=== PATIENT | female | born 1940 | race Caucasian/White ===

== ENCOUNTER 2018-07-14 06:41 | Inpatient (IN) | payer OTHER ==
[2018-07-14] VITALS (10 sets, daily range): BP systolic 103–133; BP diastolic 54–76
[~2018-07-14] VITALS: Ht 139.7 cm; Wt 53.5 kg
[2018-07-14] MEDS ORDERED: TRANEXAMIC ACID 3,000 MG in SODIUM CHLORIDE IRRIG SOLUTION 70 ML IR ONE (07:00)
--- NOTE | 2018-07-14 07:10 | NUR ---
NEW ADMISSION NOTES RECEIVED PATIENT DAY SURGERY TO ROOM 119-1, ACCOMPANIED BY STAFF & SON. A & O X 3, HEBREW SPEAKING. V/S 171/75, 65, 18, 97.5, 99% AT RA. NPO SINCE MIDNIGHT. ADMITTED FOR RIGHT KNEE SURGERY. IV INSERTED TO BENNY, G # 20 WITH GOOD BLOOD RETURN, PROCEDURE TOLERATED WELL BY THE PATIENT. USES WHEELCHAIR AT HOME. CONTINENT OF B & BM. SAFETY MEASURES IN PLACE. BED IN LOW LOCKED POSITION. CALL LIGHT WITHIN REACH. SON AT BED SIDE. ENDORSED TO AM RN TO CONTINUE PLAN OF CARE.
[2018-07-14] MEDS ORDERED: CLONIDINE HCL 0.1 MG TABLET PO PRN (08:00)
[2018-07-14] MEDS ORDERED: HYDROCODONE/APAP 5/325MG 1 EACH TABLET PO PRN (08:00)
[2018-07-14] MEDS ORDERED: HYDROCODONE/APAP 10/325MG 1 EA TABLET PO PRN (08:00)
[2018-07-14] MEDS ORDERED: MAG HYDROX/AL HYDROX/SIMETH 30 ML UDC PO PRN (08:00)
[2018-07-14] MEDS ORDERED: diphenhydrAMINE HCL 25 MG CAPSULE PO PRN (08:00)
[2018-07-14] MEDS ORDERED: LORAZEPAM 1 MG TABLET PO PRN (08:00)
[2018-07-14] MEDS ORDERED: UBID100C13 PO (08:28)
[2018-07-14] MEDS ORDERED: ASCO500T9 PO (08:28)
[2018-07-14] MEDS ORDERED: LOSA100T15 PO (08:28)
[2018-07-14] MEDS ORDERED: OMEG1CAP PO (08:28)
[2018-07-14] MEDS ORDERED: CITA20TA16 PO (08:28)
[2018-07-14] MEDS ORDERED: AMLO10TA6 PO (08:28)
[2018-07-14] MEDS ORDERED: OMEP20CA10 PO (08:28)
[2018-07-14] MEDS ORDERED: MULT-24 PO (08:28)
[2018-07-14] MEDS ORDERED: LEVO50TA8 PO (08:28)
[2018-07-14] MEDS ORDERED: ALEN70TA45 PO (08:28)
[2018-07-14] MEDS: HYDROMORPHONE 1 MG/1 ML DISP.SYRIN IM PRN (08:45)
[2018-07-14] MEDS: CITALOPRAM HYDROBROMIDE 20 MG TABLET PO SCH (09:00)
[2018-07-14] MEDS: DOCUSATE SODIUM 100 MG CAPSULE PO SCH ×2 (09:00→16:37)
--- NOTE | 2018-07-14 09:30 | NUR ---
MS RN NOTES PATIENT TRANSFERRED TO OR FOR SCHEDULED RIGHT TOTAL KNEE ARTHROPLASTY IN STABLE CONDITION.
[2018-07-14] MEDS ORDERED: BUPIVACAINE 0.75% DEXT-PF 2 ML AMPUL ONE (10:48)
[2018-07-14] MEDS ORDERED: FENTANYL PF 100MCG/2ML AMPUL ONE (10:48)
[2018-07-14] MEDS ORDERED: MORPHINE SULFATE/PF 10 MG/10ML (1MG/ML) AMPUL ONE (10:50)
[2018-07-14] MEDS ORDERED: BACITRACIN 50000 UNITS/VIAL ONE (11:00)
[2018-07-14] MEDS ORDERED: EPHEDRINE SULFATE IV 50MG VIAL ONE (12:22)
[2018-07-14] MEDS ORDERED: BISACODYL SUPP (10 MG) 10 MG/SUPP.RECT SUPP.RECT RC PRN (13:00)
[2018-07-14] MEDS ORDERED: ZOLPIDEM TARTRATE 5 MG TABLET PO PRN (13:00)
[2018-07-14] MEDS ORDERED: SENNOSIDES 8.6 MG TABLET PO PRN (13:00)
[2018-07-14] MEDS ORDERED: DOCUSATE SODIUM 250 MG CAPSULE PO PRN (13:00)
[2018-07-14] MEDS ORDERED: IV LR 1000 ML 1,000 ML IV PRN (13:00)
[2018-07-14] MEDS: ONDANSETRON HCL/PF 4 MG/2 ML VIAL IV PRN ×2 (14:51→22:47)
--- NOTE | 2018-07-14 18:14 | NUR ---
RN NOTES PATIENT IN BED RESTING NO SOB OR ACUTE DISTRESS NOTED. PATIENT KEPT COMFORTABLE. S/P RIGHT TOTAL KNEE REPLACEMENT. ALL DUE MEDICATIONS ADMINISTERED. ALL NEEDS MET. WILL ENDORSE TP PM SHIFT BETY.
--- NOTE | 2018-07-14 18:30 | NUR ---
Met with son Brad, patient speaks Croatian only. She lives with her son Brad at [address] [place] [address]. Prior to admission, she was ambulating with a wheelchair and requires min assist with adl's.She owns a walker,wheelchair and shower chair.Family is requesting SNF placement short term on discharge due to limited assistance at home. Will contact [facility] health plan for SNF approval. Addendum: 07/14/18 at 1830 by CIERRA BURNS RN Amended: Links added.
--- NOTE | 2018-07-14 19:35 | NUR ---
ANN RN NOTES RECEIVED PATIENT'S BEDSIDE REPORT FROM AM NURSE. PATIENT IS A/OX3 SONS AT THE BEDSIDE. PATIENT IS CZECH SPEAKING.PATIENT IS ON CLEAT BLANKER SR WITH HR OF 75, SPO2 IS 97% AT RA, NO NEUROLOGIC DEFICIT NOTED AT THIS TIME, NO SOB, NO COMPLAINT OF PAIN AT THIS TIME. LEFT AC IVG20 IS INTACT, PATIENT WITH LR A275ML/HR, SOUTH CATH. IN PLACE DRAINING YELLOW URINE ON GRAVITY.CONTINENT OF B & BM. SAFETY MEASURES IN PLACE. BED IN LOW LOCKED POSITION. CALL LIGHT WITHIN REACH. WILL CONT. TO MONITOR CLOSELY.
[2018-07-14] MEDS: ANCEF 1 GM/50 ML D5W IV SCH ×2 (19:44)
[2018-07-14] MEDS: ACETAMINOPHEN 325 MG TABLET PO PRN (22:47)
[2018-07-14] MEDS: PANTOPRAZOLE 40 MG TABLET.DR PO SCH (22:47)
[2018-07-15] VITALS: BP 116/60
[2018-07-15 04:00] VITALS: BP 130/46
[2018-07-15] MEDS: ANCEF 1 GM/50 ML D5W IV SCH ×2 (04:28)
[2018-07-15] MEDS: ACETAMINOPHEN 325 MG TABLET PO PRN ×2 (04:49→21:00)
--- NOTE | 2018-07-15 06:45 | NUR ---
ANN RN CLOSING NOTES PATIENT IS STABLE, A/OX3 ,SON AT THE BEDSIDE. PATIENT IS MOLDOVAN SPEAKING.PATIENT IS ON SERVICENOW ADMINISTRATOR DEVELOPER WITH SR, SPO2 IS > 95% AT RA, NO NEUROLOGIC DEFICIT NOTED DURING MY SHIFT, NO SOB, NO COMPLAINT OF PAIN AT THIS TIME. RIGHT WRIST IV G22 IS INTACT, PATIENT WITH LR 75ML/HR, SOUTH CATH. IN PLACE DRAINING YELLOW URINE ON GRAVITY. SAFETY MEASURES IN PLACE ALL THE TIME. BED IN LOW LOCKED POSITION. CALL LIGHT WITHIN REACH. WILL GIVE PATIENT'S CARE REPORT TO AM NURSE FOR DIRECTOR OF MANUFACTURING OPERATIONS.
[2018-07-15 07:09] LABS: BASOPHILS % (AUTO) 0.2 % (0.0-2.0); HEMATOCRIT 33 % (33-45); HEMOGLOBIN 10.9 g/dL (11.5-14.8); LYMPHOCYTES # (AUTO) 0.9 /CMM (0.8-4.8); LYMPHOCYTES % (AUTO) 9.6 % (20.0-44.0); MEAN CORPUSCULAR HGB CONC 33 g/dl (31.0-36.0); MEAN CORPUSCULAR VOLUME 93 fL (82-100); MONOCYTES # (AUTO) 0.6 /CMM (0.1-1.30); MONOCYTES % (AUTO) 6.8 % (2.0-12.0); NEUTROPHILS # (AUTO) 7.7 /CMM (1.8-8.9); NEUTROPHILS % (AUTO) 83.4 % (43.0-81.0); PLATELET COUNT (AUTO) 263 /CMM (150-450); RED BLOOD CELL COUNT(AUTO) 3.52 MIL/uL (4.0-5.2); WHITE BLOOD COUNT (AUTO) 9.3 K/uL (4.3-11.0)
--- NOTE | 2018-07-15 07:16 | NUR ---
MS/RN Patient received Patient received from carpet layer helper. A/O X4, Togolese speaking, son at bedside providing translation. Tele reading NSR, vital signs stable, no signs of infection. Dressing to right knee dry and intact, pain well controlled with tylenol at this time. Call light within reach, safety measures in place, will continue to monitor and ensure safety.
[2018-07-15 08:00] VITALS: BP 135/60
[2018-07-15] MEDS: DOCUSATE SODIUM 100 MG CAPSULE PO SCH ×2 (08:43→16:57)
[2018-07-15] MEDS: ASPIRIN 325 MG TABLET PO SCH (08:43)
[2018-07-15] MEDS: CITALOPRAM HYDROBROMIDE 20 MG TABLET PO SCH (08:43)
--- NOTE | 2018-07-15 08:58 | NUR ---
MS/RN Medications Morning medications administered as ordered, no difficulty swallowing.
--- NOTE | 2018-07-15 09:30 | NUR ---
MS/RN Labs Morning labs reviewed: -H&H
--- NOTE | 2018-07-15 10:30 | NUR ---
MS/RN S/B Karina King MODEL AND MOLD MAKER PLASTER Continue with current pain management regime. Await PT eval.
--- NOTE | 2018-07-15 11:30 | NUR ---
MS/RN Pain Patient complaining of pain following PT - one norco administered as ordered.
[2018-07-15 12:00] VITALS: BP 119/59
--- NOTE | 2018-07-15 12:04 | NUR ---
MS/RN S/B PT Seen by PT -able to ambulate using walker to doorway. Assisted back to bed, CPM placed. -setting 0-40.
--- NOTE | 2018-07-15 15:38 | NUR ---
MS/RN Rounds Patient comfortable at this time, no needs. Family at bedside and updated as to plan of care.
[2018-07-15 16:00] VITALS: BP 121/55
--- NOTE | 2018-07-15 16:54 | NUR ---
MS/RN Gold removed Gold catheter removed, will monitor to ensure able to pass urine.
--- NOTE | 2018-07-15 18:20 | NUR ---
MS/RN End note Patient remains in stable condition, all needs attended. Outer dressing to right knee loosened per patient request, stating that it felt too tight. Leg checked, no increase in lower extremity edema noted. Vital signs stable, no signs of infection. Son at bedside and updated as to plan of care. Gold catheter removed, has not yet voided. Will endorse to shift supervisor melting.
[2018-07-15 20:00] VITALS: BP 144/74
--- NOTE | 2018-07-15 20:00 | NUR ---
RN Patient received in bed. A/O X4. Niuean speaking, son at bedside providing translation. Tele reading NSR, HR 67. Vital signs stable. No signs of infection. Dressing to right knee dry and intact. Call light within reach. Safety measures in place. Will continue to monitor.
[2018-07-15] MEDS: PANTOPRAZOLE 40 MG TABLET.DR PO SCH (21:00)
[2018-07-16] VITALS: BP 143/86
[2018-07-16 04:00] VITALS: BP 159/64
--- NOTE | 2018-07-16 06:46 | NUR ---
RN CLOSING NOTES NO ACUTE CHANGES WITHIN THE SHIFT. ALL NURSING NEEDS ATTENDED AND MET. ASPIRATION AND SAFETY MEASURES IN PLACE AT ALL TIMES. CALL LIGHT WITHIN REACH AT ALL TIMES. ALL MEDS GIVEN ORDERED. WILL ENDORSE TO AM RN.
--- NOTE | 2018-07-16 07:00 | NUR ---
TAIL BOARD MAN INITIAL NOTES RECEIVED PT; PT ON BED AWAKE. PT IS IN PAIN BUT NOT WANTING PAIN MEDS. PT IS NOT IN RESP DISTRESS. OPERATED LEG ELEVATED ON PILLOWS. CAP REFILL LESS THAN 3 SEC. SAFETY PRECAUTIONS IN PLACE. CALL LIGHT IN REACH. WILL CONT TO MONITOR PAIN LEVELS AND PROVIDE PAIN MANAGEMENT NEEDED.
[2018-07-16] MEDS: ACETAMINOPHEN 325 MG TABLET PO PRN ×3 (07:11→21:24)
[2018-07-16 07:24] LABS: BASOPHILS # (AUTO) 0.1 /CMM (0.0-0.2); BASOPHILS % (AUTO) 0.4 % (0.0-2.0); EOSINOPHILS % (AUTO) 0.9 % (0.0-6.0); HEMATOCRIT 35 % (33-45); HEMOGLOBIN 11.4 g/dL (11.5-14.8); LYMPHOCYTES # (AUTO) 2.1 /CMM (0.8-4.8); LYMPHOCYTES % (AUTO) 17.9 % (20.0-44.0); MEAN CORPUSCULAR HGB CONC 33 g/dl (31.0-36.0); MEAN CORPUSCULAR VOLUME 91 fL (82-100); MONOCYTES # (AUTO) 1.2 /CMM (0.1-1.30); MONOCYTES % (AUTO) 10.1 % (2.0-12.0); NEUTROPHILS # (AUTO) 8.1 /CMM (1.8-8.9); NEUTROPHILS % (AUTO) 70.7 % (43.0-81.0); PLATELET COUNT (AUTO) 295 /CMM (150-450); RED BLOOD CELL COUNT(AUTO) 3.81 MIL/uL (4.0-5.2); WHITE BLOOD COUNT (AUTO) 11.5 K/uL (4.3-11.0)
[2018-07-16 07:42] LABS: CALCIUM, SERUM 8.7 mg/dL (8.5-10.1); CARBON DIOXIDE 24 mmol/L (21-32); CHLORIDE 101 mmol/L (98-107); CREATININE 1.4 mg/dL (0.6-1.3); GLUCOSE 109 mg/dL (74-106); POTASSIUM 3.3 mmol/L (3.5-5.1); SODIUM SERUM 137 mmol/L (136-145); UREA NITROGEN, BLOOD 21 mg/dL (7-18)
[2018-07-16 08:00] VITALS: BP 173/86
[2018-07-16] MEDS: DOCUSATE SODIUM 100 MG CAPSULE PO SCH ×2 (08:49→16:01)
[2018-07-16] MEDS: ASPIRIN 325 MG TABLET PO SCH (08:49)
[2018-07-16] MEDS: CITALOPRAM HYDROBROMIDE 20 MG TABLET PO SCH (08:50)
[2018-07-16] MEDS ORDERED: POTASSIUM CHLORIDE 20 MEQ TAB.PRT.SR PO SCH ×2 (12:00→14:00)
[2018-07-16 16:00] VITALS: BP 106/62
--- NOTE | 2018-07-16 19:00 | NUR ---
M/S RN CLOSING NOTES REPORT GIVEN TO PM NURSE FOR BETY. PT IS NOT IN DISTRESS. ALL NEEDS ATTENDED TO. SAFETY IS IN PLACE. CALL LIGHT IN REACH.
[2018-07-16 20:00] VITALS: BP 106/62
--- NOTE | 2018-07-16 20:00 | NUR ---
RN MS INITIAL NOTES RECEIVED PT N BED, PT ON BED AWAKE A, ALERT AND ORIENTED, BREATHING EVEN AND UNLABORED, NO SOB/ACUTE DISTRESS NOTED AT THIS TIME, S/P RIGHT TOTAL KNEE ARTHROPLASTY, NO C/O PAIN AT THIS TIME, RIGHT LEG ELEVATED FOR COMFORT, CAPILLARY REFILL LESS THAN 3 SEC, SKIN DRY, WARM AND INTACT, COLOR WNL, CALL LIGHT WITHIN REACH, FAMILY AT BEDSIDE, WILL CONTINUE TO MONITOR CLOSELY.
[2018-07-16] MEDS ORDERED: KETOROLAC TROMETHAMINE INJ 30 MG/ML VIAL IV ONE (20:30)
[2018-07-16] MEDS: PANTOPRAZOLE 40 MG TABLET.DR PO SCH (21:07)
[2018-07-17 04:00] VITALS: BP 107/48
[2018-07-17] MEDS: HYDROMORPHONE 1 MG/1 ML DISP.SYRIN IM PRN (05:13)
--- NOTE | 2018-07-17 06:55 | NUR ---
RN MS INITIAL NOTES PATIENT IN BED, SLEEPING AT THIS TIME, BREATHING EVEN AND UNLABORED, NO SOB/ACUTE DISTRESS NOTED AT THIS TIME, S/P RIGHT TOTAL KNEE ARTHROPLASTY, NO S/S OF PAIN AT THIS TIME, NO FACIAL GRIMACING NOTED, RIGHT LEG ELEVATED FOR COMFORT, CAPILLARY REFILL LESS THAN 3 SEC, SKIN DRY, WARM AND INTACT, COLOR WNL, CALL LIGHT WITHIN REACH, SON AT BEDSIDE, SO SIGNIFICANT CHANGE IN CONDITION DURING UNDERWRITING SUPPORT SPECIALIST, WILL ENDORSE CONTINUITY OF CARE TO ONCOMING NURSE.
[2018-07-17 07:24] LABS: CALCIUM, SERUM 8.2 mg/dL (8.5-10.1); CARBON DIOXIDE 27 mmol/L (21-32); CHLORIDE 104 mmol/L (98-107); CREATININE 1.5 mg/dL (0.6-1.3); GLUCOSE 96 mg/dL (74-106); POTASSIUM 3.8 mmol/L (3.5-5.1); SODIUM SERUM 140 mmol/L (136-145); UREA NITROGEN, BLOOD 17 mg/dL (7-18)
--- NOTE | 2018-07-17 07:47 | NUR ---
MS RN OPENING NOTES RECEIVED PT FROM NIGHTSHIFT NURSE IN STABLE CONDITION. PT IS A/O X3. NO SOB OR ACUTE SIGNS OF DISTRESS NOTED. BREATHING IS EVEN AND UNLABORED. PT ON RA AND SATING WELL. SHE DENIES ANY PAIN AT THIS TIME. IV TO RIGHT WRIST NOTED TO BE PATENT AND INTACT. NO REDNESS OR SIGNS OF INFILTRATION NOTED. SURGICAL DRESSING NOTED TO BE CLEAN, DRY, AND INTACT. BED IN LOW LOCKED POSITION, SIDE RAILS UP X2, CALL LIGHT WITHIN REACH. PT'S SON AT BEDSIDE. WILL CONTINUE TO MONITOR
[2018-07-17 08:00] VITALS: BP 126/62
[2018-07-17] MEDS: ASPIRIN 325 MG TABLET PO SCH (08:26)
[2018-07-17] MEDS: CITALOPRAM HYDROBROMIDE 20 MG TABLET PO SCH (08:27)
[2018-07-17] MEDS: DOCUSATE SODIUM 100 MG CAPSULE PO SCH (08:27)
[2018-07-17] MEDS: ACETAMINOPHEN 325 MG TABLET PO PRN (15:13)
--- NOTE | 2018-07-17 15:52 | NUR ---
MS LABORATORY DEVELOPMENT TECHNICIAN NOTES PT WAS DISCHARGED FROM FACILITY IN STABLE CONDITION. ALL NEEDS WERE MET DURING SHIFT AND ORDERS CARRIED OUT ACCORDINGLY. ALL DUE MEDS GIVEN. WOUND AND SKIN CARE RENDERED ORDERED PRIOR TO D/C. IV WAS SUCCESSFULLY REMOVED WITH NO COMPLICATIONS. PT PROVIDED WITH COPIES OF D/C PAPERWORK. ALL PAPERWORK SIGNED BY PT'S SON PER PT'S REQUEST. HOME HEALTH SERVICES SET UP BY CHANGE PERSON PRIOR TO D/C PT INFORMED THAT [facility] AGENC[facility] WILL CONTACT HER LATER TODAY TO SET UP VISITATION. PT WAS SAFELY ESCORTED TO THE MAIN LOBBY BY THE SILK SCREEN PROCESSOR AND LEFT VIA PRIVATE VEHICLE
== END 2018-07-17 15:30 | disposition home health service (06) | DRG 470 ==
LOC: DS 06:41 → MEDSG1 06:42 → TELE1 14:21 → MEDSG1 07-16 10:42
PROVIDERS: ADMIT Specialist; ATTEND Specialist
PROC: 0SRC0J9 Replacement of Right Knee Joint with Synthetic Substitute, Cemented, Open Approach (ICD-10-PCS; principal; 2018-07-14 11:55)
DX: M17.11 Unilateral primary osteoarthritis, right knee (principal); I12.9 Hypertensive chronic kidney disease with stage 1 through stage 4 chronic kidney disease, or unspecified chronic kidney disease; N18.9 Chronic kidney disease, unspecified; F41.9 Anxiety disorder, unspecified; E11.22 Type 2 diabetes mellitus with diabetic chronic kidney disease; F32.9 Major depressive disorder, single episode, unspecified; K21.9 Gastro-esophageal reflux disease without esophagitis; E03.9 Hypothyroidism, unspecified; M81.0 Age-related osteoporosis without current pathological fracture; K58.9 Irritable bowel syndrome, unspecified; Z87.891 Personal history of nicotine dependence
CPT/HCPCS: 36415; 80048-TC; 85025-TC; 88305-TC; 88311-TC; 97110-TC; 97116-TC; 97530-TC; 97760-TC; A4217; A6402; C1713; G0378; J0690; J1170; J1885; J2274; J2405; J2704; J3010; J3490; J7060; J7120; Z7610

== ENCOUNTER 2021-05-22 15:38 | Outpatient (CLI) | payer OTHER ==
[~2021-05-22 15:38] MED LIST: ALEN70TA80 PO; AMLO-213 PO; ASCO-352 PO; CITA20TA16 PO; LEVO50TA8 PO; LOSA100T31 PO; MULT-24 PO; OMEG1CAP PO; OMEP20CA15 PO; UBID100C13 PO
== END 2021-05-22 23:59 | disposition home or self-care (01) ==
LOC: LAB 15:38
PROVIDERS: ATTEND Specialist
DX: Z01.812 Encounter for preprocedural laboratory examination (principal); Z20.822 Contact with and (suspected) exposure to COVID-19
CPT/HCPCS: C9803; U0003

== ENCOUNTER 2021-05-27 05:19 | Inpatient (IN) | payer OTHER ==
[~2021-05-27] VITALS: Ht 149.9 cm; Wt 43.3 kg
[2021-05-27 05:50] VITALS: BP 149/70
--- NOTE | 2021-05-27 05:50 | NUR ---
MS RN DAY SURGERY NOTE PT A/OX4; ABLE TO MAKE NEEDS KNOWN. CAME IN VIA W/C C/O LEFT KNEE PAIN. TOLERATING ROOM AIR WELL WITH NO SOB. INITIATED LAC #20G S/L; PATENT AND INTACT. MRSA SWAB VIA L NARE DONE AND SENT TO LAB. URINE COLLECTED AND SENT TO LAB. ORIENTED PT TO STAFF, ROOM, AND UNIT. BS 110. PT SIGNED SURGERY, ANESTHESIA, AND BLOOD TRANSFUSION CONSENT FORMS. SAFETY MEASURES IN PLACE: BED IN LOWEST LOCKED POSITION, SR UP X2, CALL LIGHT WITHIN EASY REACH. WILL ENDORSE CARE TO SURGERY.
[2021-05-27] MEDS ORDERED: CEFAZOLIN 1 GM in IV D5W 50 ML IV ONE (06:00)
--- NOTE | 2021-05-27 06:25 | NUR ---
MS RN NOTE NOT ABLE TO GIVE ANCEF AT THIS TIME BC NOT AVAILABLE FROM CHARGE NURSE.
--- NOTE | 2021-05-27 06:46 | NUR ---
MS NOTE - SURGERY PATIENT TAKEN TO SURGERY
[2021-05-27] MEDS ORDERED: POLYMYXIN B SULFATE 500,000 UNITS ONE (07:27)
[2021-05-27] MEDS ORDERED: ANESTHESIA TRAY IN PYXIS 1 EA TRAY MC ONE (07:27)
[2021-05-27] MEDS ORDERED: BUPIVACAINE 0.5 % PF 150 MG/30 ML VIAL ONE (07:27)
[2021-05-27] MEDS ORDERED: FENTANYL PF 100MCG/2ML AMPUL ONE ×2 (07:37→10:14)
[2021-05-27] MEDS ORDERED: TRANEXAMIC ACID 3,000 MG in SODIUM CHLORIDE IRRIG SOLUTION 70 ML IR ONE (08:00)
--- NOTE | 2021-05-27 08:11 | NUR ---
MS RN DAY SURGERY NOTE PATIENT IS STILL IN SURGERY AT THIS TIME. REPORT RECEIVED FROM MIHAI AQUINO.
[2021-05-27] MEDS ORDERED: COLACE 250 MG CAPSULE PO PRN (10:30)
[2021-05-27] MEDS ORDERED: AMBIEN 5 MG TABLET PO PRN (10:30)
[2021-05-27] MEDS ORDERED: DULCOLAX 10 MG/SUPP.RECT RC PRN (10:30)
[2021-05-27] MEDS ORDERED: SENOKOT 8.6 MG TABLET PO PRN (10:30)
[2021-05-27] MEDS ORDERED: TYLENOL 650 MG TABLET PO PRN (10:30)
--- NOTE | 2021-05-27 11:00 | NUR ---
MS RN DAY SURGERY NOTES PATIENT RETURNED FROM OR BY BED ACCOMPANIED BY MIHAI SAHU AND ONE OR STAFF MEMBER. PATIENT IS ALERT AND ORIENTED X4 ICELANDIC SPEAKING. NO S/S OF DISTRESS NOTED. BREATHING IS EVEN AND UNLABORED. VITALS STABLE: BP 156/73, HR 52, RR 16, SPO2 98% ON ROOM AIR, TEMP 98 DEGREES. SAFETY MEASURES IN PLACE WITH BED LOCKED AT LOW POSITION AND SIDE RAILS UP X 2. NEW ORDERS INPUT IN SYSTEM AND CARRIED OUT. WILL CONTINUE TO MONITOR THROUGHOUT SHIFT.
[2021-05-27] MEDS: IV LR 1000 ML 1,000 ML IV PRN (11:47)
[2021-05-27] MEDS: HYDROMORPHONE 1 MG/1 ML DISP.SYRIN IV PRN ×4 (11:48→23:10)
[2021-05-27] MEDS ORDERED: DONE10TA44 PO (12:41)
[2021-05-27] MEDS ORDERED: OXYC1TAB12 PO (12:42)
--- NOTE | 2021-05-27 12:48 | NUR ---
MED RECON/PATIENT ACCESS REPRESENTATIVE HOME MEDICATION UPDATED. INFO OBTAINED FROM AMEYA (SON). PER SON, PATIENT WITH NO KNOW ALLERGY. ALSO, CALLED AND VERIFIED INFO WITH STAFF AT PCP OFFICE (DR. HADLEY AT [phone]). PRIMARY RN MADE AWARE.
--- NOTE | 2021-05-27 15:30 | NUR ---
MS RN NOTES DR. RASTA FAITH MADE AWARE TO RECONCILE MEDICATIONS.
[2021-05-27] MEDS: ZOFRAN 4mg/2ML IV PRN ×2 (15:39→20:54)
[2021-05-27 16:14] VITALS: BP 158/76
[2021-05-27] MEDS: ANCEF 1 G in IV D5W 50 ML IV SCH ×2 (16:24→23:23)
--- NOTE | 2021-05-27 19:00 | NUR ---
RN DAY SURGERY CLOSING NOTES PATIENT IS AWAKE IN BED, ALERT AND ORIENTED X 4, KENYAN SPEAKING. SON, STEVE AT BEDSIDE. NO S/S OF DISTRESS NOTED. NO SOB. BREATHING IS EVEN AND UNLABORED. IV ACCESS PATENT INTACT AND FLUSHING WELL WITH LR RUNNING @75MLS/HR. FC PATENT INTACT AND DRAINING CLEAR YELLOW URINE. SAFETY MEASURES IN PLACE WITH BED LOW AND LOCKED WITH SIDE RAILS UP X2. WILL ENDORSE CONTINUITY OF CARE TO ONCOMING SHIFT.
[2021-05-27] MEDS ORDERED: oxyCODONE/APAP (5/325 MG) 1 UDTAB TABLET PO PRN (19:30)
--- NOTE | 2021-05-27 19:45 | NUR ---
MS RN OPENING NOTES RECEIVED PT LAYING IN BED. PT IS A0x3 WITH CONFUSION. CAYMAN ISLANDER SPEAKING. NO S/SX OF RESPIRATORY DISTRESS NOTED. PT IS ON RA AND TOLERATING WELL. NO SOB NOTED. IV ACCESS IN L AC #20 IS RUNNING LR @ 75 ML/HR. SAFETY PRECAUTIONS IN PLACE: BED IN LOWEST, LOCKED POSITION, BRAKES ON, SIDE RAILS UPx2. CALL LIGHT AND TABLE WITHIN REACH. WILL CONTINUE TO MONITOR.
[2021-05-27 20:00] VITALS: BP 160/72
--- NOTE | 2021-05-27 20:54 | NUR ---
PATIENT COMPLAINED OF NAUSEA. ADMINISTERED ZOFRAN PER MD ORDER.
--- NOTE | 2021-05-27 23:10 | NUR ---
RN NOTES Complained of left knee pain- Dilaudid 1mg IV given as ordered, V/S stable
[2021-05-28] MEDS: IV LR 1000 ML 1,000 ML IV PRN (03:39)
--- NOTE | 2021-05-28 05:15 | NUR ---
RN NOTES Patient pulled out her Gold as well as her IV line, new IV access inserted on the right upper arm gauge 20
--- NOTE | 2021-05-28 06:07 | NUR ---
MS RN CLOSING NOTES PT LAYING IN BED, AWAKENS TO VERBAL STIMULI. PT IS AOx3 WITH CONFUSION. ANGUILLAN SPEAKING. NO S/SX OF RESPIRATORY DISTRESS NOTED. PT IS ON RA AND TOLERATING WELL. NO SOB NOTED. IV ACCESS IN ANDI #20 IS RUNNING LR @ 75 ML/HR. PATIENT STATED SHE HAD NAUSEA SO ZOFRAN WAS ADMINISTERED. ALL NEEDS MET. PT KEPT CLEAN AND DRY. SAFETY PRECAUTIONS IN PLACE: BED IN LOWEST, LOCKED POSITION, BRAKES ON, SIDE RAILS UPx2. CALL LIGHT AND TABLE WITHIN REACH. WILL ENDORSE TO ONCOMING SHIFT.
[2021-05-28] MEDS ORDERED: LEVOTHYROXINE SODIUM 25 MCG TABLET PO SCH (07:30)
--- NOTE | 2021-05-28 07:30 | NUR ---
MS RN OPENING NOTES NOTES RECEIVED PT IN BED, AWAKE , PT IS AOx3 WITH CONFUSION. AMHARIC SPEAKING. NO S/SX OF RESPIRATORY DISTRESS NOTED. PT IS ON RA AND TOLERATING WELL. NO SOB NOTED. IV ACCESS IN ANDI #20 ONGOING LR @ 75 ML/HR, NO S/SX OF INFILTRATION NOTED. NO COMPLAINTS OF PAIN AT THIS TIME. SAFETY PRECAUTIONS IN PLACE: BED IN LOWEST, LOCKED POSITION, BRAKES ON, SIDE RAILS UPx2. CALL LIGHT AND TABLE WITHIN REACH. WILL CONTINUE TO MONITOR ACCORDINGLY.
[2021-05-28 08:00] VITALS: BP 167/84
[2021-05-28 08:29] VITALS: BP 167/84
[2021-05-28] MEDS: HYDROMORPHONE 1 MG/1 ML DISP.SYRIN IV PRN (08:54)
[2021-05-28] MEDS ORDERED: LOSARTAN POTASSIUM 50 MG TABLET PO SCH (09:00)
[2021-05-28] MEDS ORDERED: DONEPEZIL 5 MG TABLET PO SCH (09:00)
[2021-05-28] MEDS ORDERED: AMLODIPINE BESYLATE 10 MG TABLET PO SCH (09:00)
[2021-05-28] MEDS ORDERED: ASPIRIN 325 MG TABLET PO SCH (09:00)
[2021-05-28] MEDS ORDERED: ASPI-992 PO (10:17)
[2021-05-28 17:12] LABS: HEMOGLOBIN 11.6 g/dL (11.5-14.8)
--- NOTE | 2021-05-28 17:33 | NUR ---
MS LEAD MASSAGE THERAPIST NOTES DISCHARGED PATIENT IN STABLE CONDITION. VITAL SIGNS WITHIN NORMAL LIMITS. MEDICATION INSTRUCTIONS PROVIDED TO PATIENT, HEALTH EDUCATION PROVIDED TO SON. PATIENT'S SON VERBALIZED UNDERSTANDING. BELONGINGS ACCOUNTED AND SIGNED FOR. IV ACCESS REMOVED, COVER WITH GAUZE AND SECURE WITH TAPE. NO BLEEDING NOTED. DRESSING CHANGED DONE PRIOR TO DISCHARGE ORDERED. HEMOGLOBIN HEMATOCRIT RESULTS IN, ARMBAND REMOVED. WHEELED PATIENT TO LOBBY ACCOMPANIED BY MILDRED SOLORIO, PICKED UP BY SON AT 1730. LEFT UNIT IN STABLE CONDITION. MD AND CHARGE NURSE AWARE OF DISCHARGE.
== END 2021-05-28 17:38 | disposition home health service (06) | DRG 470 ==
LOC: DS 05:19 → MED 05:20
PROVIDERS: ADMIT Internal Medicine; ATTEND Internal Medicine
PROC: 0SRD0J9 Replacement of Left Knee Joint with Synthetic Substitute, Cemented, Open Approach (ICD-10-PCS; principal; 2021-05-27)
DX: M17.12 Unilateral primary osteoarthritis, left knee (principal); E11.22 Type 2 diabetes mellitus with diabetic chronic kidney disease; I12.9 Hypertensive chronic kidney disease with stage 1 through stage 4 chronic kidney disease, or unspecified chronic kidney disease; N18.9 Chronic kidney disease, unspecified; F32.9 Major depressive disorder, single episode, unspecified; E03.9 Hypothyroidism, unspecified; K58.9 Irritable bowel syndrome, unspecified; K21.9 Gastro-esophageal reflux disease without esophagitis; F41.9 Anxiety disorder, unspecified; Z87.891 Personal history of nicotine dependence; Z20.822 Contact with and (suspected) exposure to COVID-19
CPT/HCPCS: 36415; 82962-TC; 85027-TC; 87081-TC; 88305-TC; 88311-TC; 97112-TC; 97116-TC; 97530-TC; 97760-TC; A4217; C1713; C1776; G0378; J0690; J1100; J1170; J2405; J2765; J3010; J3490; J7030; J7060; J7120; L1830